=== PATIENT | male | born 2000 | race Caucasian/White ===

== ENCOUNTER 2022-03-12 15:54 | Emergency (ER) | payer BC ==
[~2022-03-12] VITALS: Ht 172.7 cm; Wt 72.6 kg
--- NOTE | 2022-03-12 15:56 | NUR ---
Bibs c/o l sided scrotal pain on/off w/ noted lump that increased in size x 2 months. Pain 7/10 on pain scale. Awaiting MD orders.
--- NOTE | 2022-03-12 16:24 | NUR ---
dr welch at bedside for eval
[2022-03-12 17:20] VITALS: BP 117/71
--- NOTE | 2022-03-12 17:21 | NUR ---
Patient discharged to home in stable condition. Written and verbal after care instructions given. Patient verbalizes understanding of instruction.
== END 2022-03-12 17:21 | disposition home or self-care (01) ==
LOC: ER 15:54
DX: N50.82 Scrotal pain (principal); Z88.0 Allergy status to penicillin
CPT/HCPCS: 76870-TC